=== PATIENT | female | born 1965 | race Caucasian/White ===

== ENCOUNTER 2021-09-30 21:22 | Observation (INO) ==
[2021-10-01] MEDS ORDERED: Perflutren Lipid Microsphere 1.3 ML in 0.9 % Sodium Chloride 8.7 ML IVP PRN (01:02)
[2021-10-01] MEDS ORDERED: Ondansetron 4 MG/2 ML VIAL IVP PRN (01:07)
[2021-10-01] MEDS ORDERED: Naloxone 0.4 MG/ML INJ IVP PRN (01:07)
[2021-10-01] MEDS ORDERED: Morphine Sulfate 2 MG/ML SYRINGE IVP PRN (01:09)
[2021-10-01] MEDS: Melatonin 3 MG TABLET PO PRN ×2 (01:31→20:22)
[2021-10-01 01:53] LABS: Hematocrit 38.5 % (35.3-44.9); Hemoglobin 12.7 g/dL (11.5-15.4); Mean Corpuscular Volume 87.9 fL (83.0-100.0); Mean Platelet Volume 8.6 fL (9.4-12.4); Platelet Count 427 K/mcL (140-400); Red Blood Count 4.38 M/mcL (3.82-4.97); Red Cell Distribution Width 13.7 % (11.5-14.5)
[2021-10-01 02:22] LABS: % Iron Saturation 15 % (15-50); BUN/Creatinine Ratio 38 (6-26); Blood Urea Nitrogen 26 mg/dL (6-20); Calcium 9.2 mg/dL (8.6-10.3); Carbon Dioxide 27 mEq/L (23-29); Chloride 104 mEq/L (98-107); Chol/HDL Ratio 7.4 (0-4.9); Cholesterol 267 mg/dL (< 200); Glucose 98 mg/dL (70-105); HDL Cholesterol 36 mg/dL (40-59); Iron 64 mcg/dL (50-170); LDL Cholesterol,Calculated 200 mg/dL (< 100); Osmolality,Calculated 291 (280-300); Potassium 3.9 mEq/L (3.5-5.1); Sodium 138 mEq/L (136-145); Transferrin 298 mg/dL (203-362); Triglycerides 154 mg/dL (< 150); eGFR For African Americans > 60 (> 60); eGFR For Non-African Americans > 60 (> 60)
[2021-10-01 02:39] LABS: Ferritin 22 ng/mL (10-120)
[2021-10-01 02:45] LABS: Folate 6.4 ng/mL (3.0-16.0)
[2021-10-01 03:36] LABS: Estimated Average Glucose 126 mg/dl
[2021-10-01] MEDS ORDERED: *HR* Heparin 5,000 UNIT/ML VIAL IVP PRN ×2 (07:13)
[2021-10-01] MEDS ORDERED: Heparin 25,000UNIT/250ML 1/2NS 25,000 UNIT/250 ML IV.SOLN IVC SCH (07:15)
[2021-10-01] MEDS: Aspirin Enteric Coated 81 MG Tablet PO SCH (08:46)
[2021-10-01 10:07] LABS: Heparin anti-factor XA UFH 0.05 IU/mL (0.30-0.70); Prothrombin Time 11.5 Seconds (9.4-12.1)
[2021-10-01] MEDS: Metoprolol XL (24 HR) Succ 50 MG TAB.ER.24H PO SCH (10:59)
[2021-10-01] MEDS ORDERED: *HR* Midazolam HCl 2 MG/2 ML VIAL ONE ×2 (11:58→12:56)
[2021-10-01] MEDS ORDERED: 0.9 % Sodium Chloride 2,000 ML ONE (11:58)
[2021-10-01] MEDS ORDERED: *HR* FentaNYL (PF) 100 MCG/2 ML VIAL ONE (11:58)
[2021-10-01] MEDS ORDERED: *HR* Heparin 10,000 UNIT/10 ML VIAL ONE (11:58)
[2021-10-01] MEDS ORDERED: ISOVUE-370 200 ML INFUS..BTL ONE ×2 (11:58→13:16)
[2021-10-01] MEDS ORDERED: Heparin 1,000 UNITS/500 mL 500 ML ONE (11:58)
[2021-10-01] MEDS ORDERED: Nitroglycerin 1,000 MCG/5 ML VIAL IV ONE (11:59)
[2021-10-01] MEDS ORDERED: *HR* Ticagrelor 90 MG TABLET ONE (13:24)
[2021-10-01] MEDS ORDERED: Nitroglycerin 0.4 MG TAB.SUBL SL PRN (16:26)
[2021-10-01] MEDS: Simethicone 80 MG TAB.CHEW PO PRN ×2 (17:00→20:22)
[2021-10-01] MEDS: *HR* Heparin 5,000 UNIT/ML VIAL SQ SCH (17:01)
[2021-10-01] MEDS: Nicotine 21 MG PATCH.TD24 TD SCH (18:14)
[2021-10-01] MEDS: *HR* Ticagrelor 90 MG TABLET PO SCH (20:23)
[2021-10-02] MEDS ORDERED: Acetaminophen 325 MG TABLET PO PRN (00:38)
[2021-10-02 03:58] LABS: Hematocrit 38.9 % (35.3-44.9); Hemoglobin 12.7 g/dL (11.5-15.4); Mean Corpuscular HGB Conc 32.6 g/dL (31.6-35.5); Mean Corpuscular Hemoglobin 28.6 pg (28.0-33.3); Mean Corpuscular Volume 87.6 fL (83.0-100.0); Platelet Count 395 K/mcL (140-400); Red Blood Count 4.44 M/mcL (3.82-4.97); Red Cell Distribution Width 13.8 % (11.5-14.5)
[2021-10-02 04:28] LABS: BUN/Creatinine Ratio 32 (6-26); Blood Urea Nitrogen 24 mg/dL (6-20); Calcium 9.4 mg/dL (8.6-10.3); Carbon Dioxide 24 mEq/L (23-29); Chloride 103 mEq/L (98-107); Glucose 97 mg/dL (70-105); Osmolality,Calculated 286 (280-300); Potassium 3.9 mEq/L (3.5-5.1); Sodium 136 mEq/L (136-145); eGFR For African Americans > 60 (> 60); eGFR For Non-African Americans > 60 (> 60)
[2021-10-02] MEDS: *HR* Heparin 5,000 UNIT/ML VIAL SQ SCH (05:16)
[2021-10-02 07:35] VITALS: BP 117/77; PULSE 77; TEMP 98.9; O2SAT 95
[2021-10-02] MEDS: Aspirin Enteric Coated 81 MG Tablet PO SCH (09:40)
[2021-10-02] MEDS: Metoprolol XL (24 HR) Succ 50 MG TAB.ER.24H PO SCH (09:41)
[2021-10-02] MEDS: *HR* Ticagrelor 90 MG TABLET PO SCH (09:41)
[2021-10-02] MEDS: Nicotine 21 MG PATCH.TD24 TD SCH (09:42)
== END 2021-10-02 10:47 | disposition home or self-care (01) ==
LOC: 2ANU → SUATTDRO 23:24
PROVIDERS: ADMIT Internal Medicine; ATTEND Internal Medicine